=== PATIENT | male | born 1960 | race Caucasian/White ===

== ENCOUNTER 2018-01-02 16:15 | Emergency (ER) | payer MEDICARE ==
[~2018-01-02] VITALS: Ht 177.8 cm; Wt 102.0 kg
[2018-01-02] MEDS ORDERED: CLON.3 PO (16:29)
[2018-01-02] MEDS ORDERED: LOSA1TAB42 PO (16:29)
[2018-01-02] MEDS ORDERED: ASPI-891 PO (16:29)
[2018-01-02] MEDS ORDERED: CloNIDine HCL 0.2 MG TABLET PO ONE (19:15)
[2018-01-02 20:00] VITALS: BP 164/74
== END 2018-01-02 20:21 | disposition short-term general hospital (02) ==
LOC: EMS 16:17
DX: I63.9 Cerebral infarction, unspecified (principal); R53.1 Weakness; I10 Essential (primary) hypertension; F17.210 Nicotine dependence, cigarettes, uncomplicated
CPT/HCPCS: 70544; 70547; 70551; 72148; 99285